=== PATIENT | male | born 1945 | race Caucasian/White ===

== ENCOUNTER 2024-07-10 06:58 | Day surgery (SDC) | payer MEDICARE ==
[2024-07-05 10:42] VITALS: BMI 26.4
[~2024-07-10 06:58] MED LIST: TETRACAINE 0.5% OPHTH (PF) DROPS 4 ML BTL OP PRN
[2024-07-10] MEDS: IV FLUID CONTINUATION 1,000 ML IV ONE (07:05)
[2024-07-10] MEDS: CYCLOPENTOLATE 1% OPHTH SOLN 2 ML BTL OP PRN (07:27)
[2024-07-10 07:30] VITALS: TEMP 98
[2024-07-10] MEDS: PHENYLEPHRINE 2.5% OPHTH DRP 2ML OP PRN (07:30)
[2024-07-10] MEDS: LACTATED RINGERS 1,000 ML IV SCH (07:43)
[2024-07-10] MEDS ORDERED: MIDAZOLAM 2 MG/2 ML VIAL ONE (08:05)
[2024-07-10] MEDS ORDERED: fentaNYL (PF) 50 MCG/ML 2 ML AMP ONE (08:05)
[2024-07-10] MEDS: MOXIFLOXACIN HCL 0.5% DROPS 3 ML BTL OP PRN (08:18)
[2024-07-10] MEDS: TIMOLOL 0.5% OPHTH DROPS 5 ML BTL OP PRN (08:19)
[2024-07-10] MEDS: HYALURONATE SODIUM INTRAOCULAR 1 EACH SYRINGE (12MG/ML) INTRAOCULA ONE (08:19)
[2024-07-10] MEDS: BALANCED SALT IRRIG SOLN COMB2 15 ML IRRIG.SOLN INTRAOCULA ONE (08:19)
[2024-07-10] MEDS: LIDOCAINE 1% (PF) 10MG/ML VIAL MISCELLANE ONE (08:20)
[2024-07-10] MEDS: EPINEPHrine (PF) 0.3 ML in BALANCED SALT IRRIG SOLN COMB2 500 ML IRRIGATION ONE (08:20)
--- NOTE | 2024-07-10 08:36 | P.OP ---
Date of Procedure: 07/10/24 Preoperative Diagnosis: NS & CS & PSC Postoperative Diagnosis: same Procedure(s) Performed: PIOL, OD Implants: MX60E 19.00 Anesthesia: MAC Surgeon: Laz Benjamin Pathology: none sent Condition: stable Disposition: same day Indications for Procedure: blurry vision Operative Findings: no complications
[2024-07-10 09:47] VITALS: RESP 18
[2024-07-10 09:51] VITALS: BP 148/67; PULSE 62
--- NOTE | 2024-07-10 18:59 | OP ---
OPERATIVE REPORT DATE OF SERVICE : 07/10/2024 PREOPERATIVE DIAGNOSIS: Nuclear sclerosis, cortical sclerosis, posterior subcapsular cataract. POSTOPERATIVE DIAGNOSIS: Nuclear sclerosis, cortical sclerosis, posterior subcapsular cataract. OPERATION: Phacoemulsification of cataract and interocular lens implant, right eye. ESTIMATED BLOOD LOSS: Zero. SPECIMEN TAKEN: None. NARRATIVE: After obtaining the appropriate consent, the patient was brought to the operating room where the patient was placed under cardiac monitoring and prepped and draped in the usual sterile manner. At the 11 o'clock position, a 15-degree super sharp blade was used to create a paracentesis followed by instillation of 1% Xylocaine MPF 50:50 mix with BSS into the anterior chamber. This was followed by Duovisc viscoelastic to stabilize the anterior chamber. At the 9 o'clock position a self-sealing corneal flap incision was created using 2.8 mm jenn keratome. A cystotome was used to initiate a continuous tear capsulorrhexis which was completed with the Utrata forceps. A Binkhorst cannula was used to hydrodissect the lens nucleus followed by hydrodelineation. Phacoemulsification of the lens was performed utilizing phacochop in 15.26 Seconds at 13.8% power. The remaining cortical material was removed using the irrigation aspiration mode followed by additional 1% Xylocaine MPF into the anterior chamber followed by viscoelastic to stabilize the capsular bag. A [employer] MX60E 19.0 diopters posterior chamber lens was placed into the capsular bag without difficulty. The remaining viscoelastic material was removed from the anterior chamber with the irrigation/aspiration. Balanced salt solution was used to normalize the intraocular pressure. The incision was checked for watertight integrity. The patient then received 2 drops of 0.5% timolol followed by 2 drops Vigamox, was lightly patched and shielded in the usual manner. There were no complications from the procedure. The patient tolerated the procedure well and was returned to recovery in good condition. MMODL / IJN: [id number] /
== END 2024-07-10 09:39 | disposition home or self-care (01) ==
LOC: OR 06:58
PROVIDERS: ATTEND Ophthalmology